=== PATIENT | female | born 1965 | race Caucasian/White ===

== ENCOUNTER → 2017-07-30 08:19 | Outpatient (CLI) | payer OTHER, SELFPAY ==
--- NOTE | 2017-07-30 08:23 | CT_ITS ---
STUDY: CT BRAIN WITHOUT CONTRAST REASON FOR EXAM: Female, 51 years old. Altered mental status. RADIATION DOSAGE (If Supplied By Facility): CTDIvol = ( 44.99 ) mGy, DLP = ( 728.62 ) mGycm TECHNIQUE: Transaxial CT imaging of the brain was performed without administration of intravenous contrast material. Individualized dose optimization techniques were used for this CT. COMPARISON: Comparison is made with prior study dated April 24, 2010. FINDINGS: Normal soft tissue structures. Normal calvarium. Normal size ventricles and extra-axial spaces for the patient's age. Normal white matter tracts of the cerebral hemispheres. Normal basal ganglia and thalami. Normal brainstem. Normal cerebellum. There is no intracranial hemorrhage. There are no findings of an acute ischemic infarction. Normal visualized paranasal sinuses. CT/Brain/Head without Contrast IMPRESSION: Normal unenhanced CT scan of the brain. Electronically Signed: Quinten Hernandez MD at 11:13 EST Tel [phone], Service support ,
== END ==
PROVIDERS: Family Provider Nurse Practitioner; PCP Nurse Practitioner; Visit Provider Nurse Practitioner
DX: R41.82 Altered mental status, unspecified (principal)
CPT/HCPCS: 70450

== ENCOUNTER → 2017-08-07 09:48 | Outpatient (CLI) | payer OTHER, SELFPAY ==
--- NOTE | 2017-08-07 09:50 | RAD_ITS ---
STUDY: X-RAY BONE SURVEY COMPLETE REASON FOR EXAM: Female, 51 years old. Abnormal blood chemistry, bilateral wrist and knee pain, no known injury, memory loss TECHNIQUE: One view of the pelvis was obtained. 2 views of the cervical spine were obtained. 2 Single views of the thoracic spine were obtained. 2 views of the lumbar spine were obtained. 2 each views of the femur. 2 each views of the humerus and forearms. : 2 views of the skull were obtained. COMPARISON: None. FINDINGS: CHEST: The lungs are clear and expanded. There is no demonstrated pleural abnormality. Normal size heart. Normal mediastinum and cornelius. Normal visualized pulmonary arteries. Normal visualized aortic arch and descending thoracic aorta. Normal visualized thoracic spine. Normal visualized ribs, clavicles, and shoulders. There is no demonstrated abnormality of the visualized soft tissue structures of the upper abdomen. PELVIS: There is a non-specific bowel gas pattern. Normal visualized soft tissue structures. Normal bilateral iliac wings, sacroiliac joints and visualized sacrum. Normal visualized bilateral superior and inferior pubic rami. Normal pubic symphysis. Normal ischial tuberosities. Normal visualized right femoral head. Normal right acetabulum. Normal right hip joint. Normal visualized left femoral head. Normal left acetabulum. Normal left hip joint. CERVICAL SPINE: Normal anterior atlantoaxial articulation. Normal odontoid process. Normal cervical lordosis. Normal vertebral bodies and endplates. Normal disc space heights. Normal visualized intervertebral neuroforamina. The soft tissue structures are unremarkable. THORACIC SPINE: Normal kyphosis of the thoracic spine. There is no substantial scoliosis. Normal thoracic vertebrae and endplates. Normal disc space heights. The soft tissue structures are unremarkable. LUMBAR SPINE: Normal lumbar lordosis. There is no substantial scoliosis. There is a normal alignment of the vertebrae. Normal vertebral bodies and endplates. Normal disc space heights. The soft tissue structures are unremarkable. RIGHT FEMUR: Normal visualized femur. Normal visualized soft tissue structure. LEFT FEMUR: Normal visualized femur. Normal visualized soft tissue structure. RIGHT HUMERUS :Normal visualized humerus. There is no demonstrated fracture or osseous destructive process. There is no demonstrated soft tissue abnormality. LEFT HUMERUS:Normal visualized humerus. There is no demonstrated fracture or osseous destructive process. There is no demonstrated soft tissue abnormality. SKULL: There is no demonstrated soft tissue swelling. Normal osseous calvarium. Normal visualized facial bones. Normal visualized paranasal sinuses. RAD/Bone Survey Comp(Axial&Append) IMPRESSION: No osteolytic or blastic lesion, acute or chronic injury detected. Age-appropriate osseous structures. Electronically Signed: Eliaan Chavez MD at 9:34 EST , Service support ,
== END ==
PROVIDERS: Family Provider Nurse Practitioner; PCP Nurse Practitioner; Visit Provider Nurse Practitioner
DX: R79.9 Abnormal finding of blood chemistry, unspecified (principal)
CPT/HCPCS: 77075

== ENCOUNTER → 2017-08-21 11:56 | Outpatient (CLI) | payer OTHER, SELFPAY ==
--- NOTE | 2017-08-21 11:58 | HPBI_ITS ---
MAMMOGRAPHY - BILATERAL SCREENING REASON FOR EXAM: Female, 51 years old. Routine annual screening examination. PERTINENT HISTORY: Remote left excisional breast biopsy. TECHNIQUE: Digital bilateral breast alfreda (3D mammographic acquisition) in the CC and MLO projections. 2-D mediolateral oblique (MLO) and craniocaudad (CC) views of both breasts were obtained. CAD: Full Field Digital Mammography with Computer Added Detection was performed. COMPARISON: Comparison is made with prior examination dated October 19, 2015 and April 27, 2015. FINDINGS: Breast Composition: The breasts are heterogeneously dense, which may obscure small masses. There are no dominant masses or suspicious calcifications. No other significant abnormalities are identified. There has been no significant change since the prior study. HPBI/SCREENING MAMM (CAD), BILAT IMPRESSION: Stable bilateral screening mammogram. Yearly follow-up mammogram recommended. (A) ASSESSMENT CATEGORY: BIRADS Category 1: Negative. A letter regarding these results will be sent to the patient by the facility within 30 days. Approximately 10% of breast cancers are not detected by mammography. A normal mammogram should not delay biopsy of a clinically suspicious abnormality. [id number] Electronically Signed: Quinten Hernandez MD at 13:19 EST Tel [phone], Service support ,
== END ==
PROVIDERS: Family Provider Nurse Practitioner; PCP Nurse Practitioner; Visit Provider Obstetrics & Gynecology
DX: Z12.31 Encounter for screening mammogram for malignant neoplasm of breast (principal)
CPT/HCPCS: 77063; 77067

== ENCOUNTER → 2018-05-11 15:46 | Outpatient (CLI) | payer OTHER, SELFPAY ==
--- NOTE | 2018-05-11 15:49 | CT_ITS ---
STUDY: LOW DOSE CT LUNG CANCER SCREENING REASON FOR EXAM: Female, 52 years old. Smoking 1.5 packs per day for 37 years. Lung cancer screening. RADIATION DOSAGE (If Supplied By Facility): CTDIvol = ( 1.70 ) mGy, DLP = ( 53.61 ) mGycm TECHNIQUE: No contrast was administered. Low dose technique was utilized (average mAS-38 and kVp 120). 1.25 mm axial source images with a slice interval of 1.25-mm were reconstructed in lung windows. Coronal and sagittal 2-D MPR Nodule measured using lung windows on PACS and/or independent workstation with automated measurement of minimum and maximum diameter. Nodule measurement reported as average diameter rounded to the nearest whole number. Growth is defined as an increase ins size of greater than 1.5 mm. COMPARISON: X-ray chest 10/24/2015. FINDINGS: Total lung nodules (excluding granulomas): Right upper lobe anterior segment subpleural pulmonary nodule 2 mm series 1002, image 125. Right lower lobe lateral basilar minimal nodular thickening at the interface of a small accessory fissure and the posterior lateral pleural reflection image 111, 4.6 mm. Left upper lobe posterior apical segment calcified pulmonary nodule consistent with old granules disease, image 84. Left lower lobe lateral basilar subpleural pulmonary nodule 3 mm, image 163. Emphysema: Subtle findings suggesting minimal centrilobular emphysema in the apical lungs. Endobronchial lesion: None. Aorta: Nondilated. No visible arch atherosclerosis. Coronary arteries: No visible atherosclerosis. Heart: Normal heart size without pericardial effusion. Pulmonary artery: Nondilated central pulmonary arteries. Mediastinal nodes: There is no mediastinal or hilar lymphadenopathy. Other chest and abdominal findings: There is circumferential thickening of wall the middle and distal 3rd of the esophagus which may reflect the presence of esophagitis. Clinically correlate for GERD or other symptoms. No other acute thoracic process is evident in limited evaluation. CT/Chest without Contrast IMPRESSION: No acute cardiopulmonary process. Circumferential thickening of wall the middle and distal 3rd of the esophagus. Correlate clinically for any symptoms of esophagitis/GERD. Subtle features of the lung apices suggesting very mild centrilobular emphysema. Tiny pulmonary nodules, the largest measuring 4.6 mm. A solitary calcified pulmonary nodules present consistent with old granulomatous disease. The other tiny nodules may be related to the same process. ACR Lung RADS Category 2 (benign appearance, less than 1% chance of malignancy). Recommendation: Continue annual low dose screening CT. IMPORTANT NOTES FOR USE: ACR Lung-RADS Version 1.0 Assessment Categories Release Date: October 17, 2013 Category: Coded 0-4 bases on nodule(s) with highest degree of suspicion. Negative screen is defined as categories 1 and 2; a positive screen is defined as categories 3 and 4. Category 3 and 4A nodules that are unchanged on interval CT should be coded as category 2, and individuals returned to screening in 12 months. Category 4X: Category 3 or 4 nodules with additional imaging findings that increase the suspicion of lung cancer, such as spiculation, GGN that doubles in size in 1 year, enlarged lymph notes, etc. Category Modifiers: S (significant finding unrelated to lung cancer) and C (prior history of treated lung cancer) may be added to the 0-4 Lung-RADS Electronically Signed: Vicente Lafleur, at 15:05 EST Tel , Service support ,
== END ==
PROVIDERS: Family Provider Nurse Practitioner; PCP Nurse Practitioner; Referring Provider Internal Medicine Pulmonary Disease; Visit Provider Internal Medicine Pulmonary Disease
DX: Z87.891 Personal history of nicotine dependence (principal)
CPT/HCPCS: 71250

== ENCOUNTER → 2019-05-25 08:21 | Outpatient (CLI) | payer OTHER, SELFPAY ==
--- NOTE | 2019-05-25 08:26 | RAD_ITS ---
STUDY: X-RAY - RIGHT WRIST REASON FOR EXAM: Female, 53 years old. Chronic pain, recent injury TECHNIQUE: 3 view(s) of the wrist were obtained. COMPARISON: None. FINDINGS: Normal visualized distal radius and ulna. Normal radiocarpal articulation. Normal distal radioulnar articulation. Normal carpal bones. Normal carpal articulations. Normal carpometacarpal articulation of the thumb. Normal second through fifth carpometacarpal articulations. Normal visualized metacarpal bones. The soft tissue structures are unremarkable. RAD/Wrist min 3 Views IMPRESSION: Normal x-ray examination of the wrist. Electronically Signed: Rickie Peralta MD at 17:14 EST , Service support ,
== END ==
PROVIDERS: Family Provider Nurse Practitioner; PCP Nurse Practitioner; Referring Provider Nurse Practitioner; Visit Provider Nurse Practitioner
DX: M25.531 Pain in right wrist (principal)
CPT/HCPCS: 73110

== ENCOUNTER 2019-06-30 09:00 | Outpatient (RCR) | payer OTHER, SELFPAY ==
--- NOTE | 2019-06-14 13:10 | HP.OTEVAL_ITS ---
Patient's Visit Information SAVANNA FUENTES is a 53 year old F, referred to Occupational Therapy by Kirill Shankar PA-C, with a diagnosis of right wrist pain. Date of Evaluation: 06/14/19 Occupational Therapist: ELHAM Jacobs/Starr, CHT - Subjective Subjective: This 53 year old female was seen for OT eval for dx of right wrist pain- pt states she has had pain for about 8 weeks- pt states she had a fall and pt was place in brace, pt demo pain with wrist flex and lateral pinch- pt states she is limited with al ADls at this time. - ADLs Dressing: Bra, Pants, Socks Fasteners: Zippers, [place] Eating: Use silverware, Drink from glass Bathing: Squeeze shampoo bottle Household: Vacuum, Laundry Miscellaneous: Use cell phone, Handle money (change) - Pain right wrist 2 Pain Intensity Range: 6 - ROM Forearm: right/left WNL Wrist: right 45/60 left 75/60 - Strength Electrical Tech/Project Manager: right 45# left 60# Lateral Pinch: right 12# with pain 4/10 left 14# Tripod Pinch: right 10# with pain 4/10 left 14# - Sensation Sensation Comments: denies - Special Tests WHAT Test: positive - Quick DASH-Disab of Arm,Shoulder& Hand Quick DASH Score: 50.0000 - Goals Goal:: PT will demo an increase in resident services director strength by 20# to increase independent with basic occupations of daily living to return pt to PLOF by D/C. Pt will demo an increase in lateral and tripod pinch by 2# to increase pts independent with opening baggies, containers at PLOF by D/C. Goal:: Pt will demo an increase in wrist ROM equal to unaffected wrist to return pt to PLOF with grooming, dressing and home mtg tasks by D/C. Goal:: Pt will report pain no greater than 1/10 with use of affected hand with BADLs and IADLs by d/c. Goal:: Pt will demo understanding of work/lifting and carry ergonomics to decrease stress on tendons to increase pts independent with ADLs, IADLS and work tasks by d/c. Goal:: Pt will demo ind. Donning/doffing of custom orthosis by end of 1st session. Pt will demonstrate understanding of orthosis use and precautions by end of 1st session and demonstrate knowledge of returning to clinic if orthosis needs adj. to increase comfort by end of 1st session. - Rehabilitation General Assessment: pt demo with right 1st dorsal wrist pain with use of right wirst with ADLs and IADLS. A weak resident services director and pinch strength with pain. Pt would benefit from skilled OT services 1-2x week for 4 weeks. Today pt was ed. on wrist ergo, mechanics to limit pinch with wrist in a flexed position. Therapist also myriam. thumb spica orthosis ed. on use and care. pt demo understanding and agree to POC. Rehabilitation Potential: Good - Anticipated Interventions Anticipated Interventions: Early Active Motion, A/AAROM/PROM, Strengthening, Modalities, Orthoses, Joint Protection/Energy Conservation, Ergonomic Education - Visit Plan Frequency: 2-3x /Week Duration: 4 Weeks TEXT: Thank you for the opportunity to evaluate your patient. For Medicare and Medicare HMO plans, please review the plan of care and approve it. It will need to be FAXED BACK to us at [phone] for Medicare purposes. Please let me know if there are questions or concerns regarding this plan of care. Physician Signature: Date:
--- NOTE | 2019-08-08 12:24 | HP.OT.NRP ---
HP - Discharge Summary - Patient Information SAVANNA FUENTES was seen in my office for initial evaluation on 06/14/19. The following Plan of Care was established for this patient: Plan: Continue to wear soft orthosis-. use wrist ergo at work - Anticipated Interventions Anticipated Interventions: Early Active Motion, A/AAROM/PROM, Strengthening, Modalities, Orthoses, Joint Protection/Energy Conservation, Ergonomic Education This patient was last seen in our office 06/30/19. Pertinent comments regarding their Occupational therapy will appear below: pt was seen in OT 4 visit with minimal improvement. Pt was returning to for re-eval. pt has not scheduled any further apts and is D/C at this time. At this point I will be discontinuing this patient from occupational therapy. I would be happy to see this patient again in the future if found appropriate by the physician. Thank you! Luba Khan, OTR/L, CHT
== END 2019-06-30 19:00 | disposition home or self-care (01) ==
LOC: OT 09:00
PROVIDERS: Family Provider Nurse Practitioner; PCP Nurse Practitioner; Referring Provider Physician Assistant; Visit Provider Physician Assistant
DX: M67.833 Other specified disorders of tendon, right wrist (principal)
CPT/HCPCS: 97035; 97140; 97166; 97530; 97760

== ENCOUNTER → 2019-07-15 06:13 | Outpatient (CLI) | payer OTHER, SELFPAY ==
--- NOTE | 2019-07-15 12:34 | NEURO ---
NCS and/or EMG Patient Report Ordering Doctor: Mireille Fall DATE OF SERVICE: 07/15/19 Devika Page is a 53-year-old female presents for electrodiagnostic testing of the right upper limb. She reports pain in the right wrist since a fall in April 2019. Electrodiagnostic findings: The right median motor nerve demonstrates normal distal latency, amplitude and conduction velocity. Normal right ulnar motor response, including conduction across the elbow. Normal median and ulnar F waves. Sensory responses are within normal limits. On needle EMG, all muscles tested in the right upper limb showed no evidence of denervation with normal motor unit action potentials. Electrodiagnostic impression: This is a normal electrodiagnostic study of the right upper limb. There is no electrodiagnostic evidence for peripheral neuropathy or cervical radiculopathy. If there are any further questions, please do not hesitate to contact me.
== END ==
PROVIDERS: Family Provider Nurse Practitioner; PCP Nurse Practitioner; Referring Provider Nurse Practitioner; Visit Provider Nurse Practitioner
DX: M25.531 Pain in right wrist (principal)
CPT/HCPCS: 95886; 95909

== ENCOUNTER 2019-12-15 13:00 | Outpatient (RCR) | payer OTHER, SELFPAY ==
--- NOTE | 2019-10-11 06:59 | HP.OTEVAL ---
Patient's Visit Information SAVANNA FUENTES is a 54 year old F, referred to Occupational Therapy by ELIF LOPES, with a diagnosis of Scapholunate ligament reconstruction. Date of Evaluation: 10/05/19 Occupational Therapist: Luba Khan, ELHAM/Starr, CHT - Subjective Subjective: This 53 year old female was seen for OT eval with dx of complete tear of ligament of wrist right wrist. Sx was on 08/26/19 diagnostic arthroscopy right wrist with SEC debridement, 2) open scapholunate ligament reconstruction using palmaris longus autograft/3. posterior interosseous nerve neurectomy right wrist-. Dr. pollack calls for working finger ROM and edema control. 8 weeks from sx (September) may Begin gentle wrist ROM without limits. 12 wks from surgery may begin strengthening. pt arrives to session with right hand edema, and soft right wrist brace. pt states thumb and fingers are tender and sore. pt would like to return to PLOF. - ADLs Dressing: Coat, Pants, Socks, Shoes Fasteners: Tie shoes, Buttons, Zippers, Snaps Eating: Bring food to mouth, Use silverware Kitchen: Chop with knife, Peel fruits & vegetables, Open jars, Open bottle caps, Lift gallon of milk, Pour from pitcher, Take dish out of oven, Load/unload solar sales estimator Yard: Mow lawn, [place], Use shovel, Use pruners Miscellaneous: Open medication bottle, Handle money (change), Hold change, Take things out of wallet, Open envelope, Write, Turn pages in book, Use hand tools - Pain right wrist/hand 2 Pain Intensity Range: 1, 6 - ROM Forearm: right NT left WNL Wrist: right NT left WNL CMC: right 5 MP: right 40 IP: right 5 Radial Abduction: right 30 ROM Comments: right IF MCP -10/30, PIP -5/30 DIP 0/10. right MF MCP -10/30, PIP -10/25 DIP 0/10. right RF MCP -10/40, PIP 0/30 DIP 0/10. right LF MCP -10/30, PIP 0/20 DIP 0/10. left hand demo all ROM WNL avergae of MCP 0/80 PIP 0/100 DIP 0/50 - Strength Commercial Lines Insurance Agent: right NT left 50# Lateral Pinch: right NT left 12# Tripod Pinch: rigth NT left 12# - Edema Wrist: right 17.5cm left 16cm PIP: right 7.0 left 6.0 Other: right 20cm left 19cm - Sensation Sensation Comments: WNL at 2.83 all digits- pt reports tingling in right hand - Quick DASH-Disab of Arm,Shoulder& Hand Quick DASH Score: 83.3325 - Hand/Wrist Evaluation Total Score of Pain & Functional Sections: 69 - Goals Goal:100% adherence to protocol: Yes Comment: Dr. Ruggiero SL lig. reconstruction protocol Goal:Daily scar massage when approriate: Yes Comment: right forearm, wirst ROM equal to 70% of unaffected wrist/forearm Goal:Commercial Lines Insurance Agent/Pinch strength at least 75% of unaffected hand: Yes Goal:No pain with affected hand use: Yes Goal:PIP Circumferences equal to unaffected hand: Yes Goal:Full use of affected hand in daily activities including: Yes Goal:Decrease scar hypersensitivity: Yes - Rehabilitation General Assessment: Sx was on 08/26/19 diagnostic arthroscopy right wrist with SEC debridement, 2) open scapholunate ligament reconstruction using palmaris longus autograft/3. posterior interosseous nerve neurectomy right wrist-. Dr. pollack calls for working finger ROM and edema control. 8 weeks from sx (September) may Begin gentle wrist ROM without limits. 12 wks from surgery may begin strengthening. PT demo with edema and limited digit ROM limiting her ability to for a composite fist, and due to healing structure limited with ROM and strengt progression to dr. pollack. pt would benefit from skilled OT services 2-3x week for 8 weeks to assist pt in mtg. edema, provide PROM/joint mobilization to digits, scar mtg and when protocol allow progress pts wrist/forearm and strength to return pt to PLOF. Today therapist completed MEM to decrease edema, ed. pt on home edema mtg, contrast bath/ice, scar mtg and use of brace to prevent wrist motion at this time. Therapist ed. pt wrist ROM can start Aprl 1st her 8 weeks s/p. pt demo understanding and agree to POC. Rehabilitation Potential: Good - Anticipated Interventions Anticipated Interventions: A/AAROM/PROM, Strengthening, Scar Care, Triggerpoint Release, Desensitization, Modalities, Orthoses, Joint Protection/Energy Conservation, Fine Motor Coord/Rafi, Education re Diagnosis - Visit Plan Frequency: 2-3x /Week Duration: 2 Months TEXT: Thank you for the opportunity to evaluate your patient. For Medicare and Medicare HMO plans, please review the plan of care and approve it. It will need to be FAXED BACK to us at [phone] for Medicare purposes. Please let me know if there are questions or concerns regarding this plan of care. Physician Signature: Date:
--- NOTE | 2019-11-17 12:22 | OTREVAL_ITS ---
ELIF LOPES, It has been my pleasure to treat SAVANNA FUENTES over the last 17 visits for Scapholunate ligament reconstruction. Please see the progress note below for an update on the occupational therapy plan of care! Subjective: pt is 12 weeks s/p SL repair. pt reports pain in right shoulder- No pain in her right wrist with ADLS. Objective/Function: pt struggling with edema- using edema glove and cool tap water as needed- pt can form a light composite fist but just recently was able to do so. wrist ext 50*. wrist flex ranges 15-20*. RD 10 UD 15. right forearm supination 60. supination 70* following ex. pt also started to have right shoulder pain. therapy has initiated light strengthening at this time.Pt tolerating well-. pt very active with gardening (therapist has advised pt to not use right UE with heavy lifting task and to use brace when gardening) Plan Frequency: 2-3x /Week Duration: 2 Months Plan: 12 weeks from sx may begin stregnthening Goals - Goals Patient Goals: Regain Mobility, Decrease Pain, Decrease Swelling/Stiffness, Use Hand/Wrist/Arm Normally Again, Decrease Tingling/Numbness, Increase ROM, Be More Independent in ADLS, Decrease Sensitivity Goal:100% adherence to protocol: Yes Goal:Daily scar massage when approriate: Yes Goal:Rehabilitation Inspector/Pinch strength at least 75% of unaffected hand: Yes Goal:No pain with affected hand use: Yes Goal:PIP Circumferences equal to unaffected hand: Yes Goal:Full use of affected hand in daily activities including: Yes Goal:Decrease scar hypersensitivity: Yes Anticipated Interventions Anticipated Interventions: A/AAROM/PROM, Strengthening, Scar Care, Triggerpoint Release, Desensitization, Modalities, Orthoses, Joint Protection/Energy Conservation, Fine Motor Coord/Rafi, Education re Diagnosis Please do not hesitate to contact me at [phone] by phone or if you have questions or concerns regarding this new plan of care! Sincerely, Luba Khan, OTR/L, CHT
--- NOTE | 2019-12-06 09:18 | OTREVAL_ITS ---
ELIF LOPES, It has been my pleasure to treat SAVANNA FUENTES over the last 21 visits for Scapholunate ligament reconstruction. Please see the progress note below for an update on the occupational therapy plan of care! Subjective: Pt states she didn't wear edema glove over night and woke up with hand very swelled. She is going for a nerve conduction done on . Objective/Function: Wrist before: . Sup 77. Wrist after: . R director online marketing 26. L director online marketing 60. pt cont to make gains with ROM and strength for ADLs and IADls- pt is struggles with swelling in her hand and cont. to use edema glove with task. Pt working around her home doing gardening and home mt. as painting and stainging. pt states she does compensate at this time but feels comfortable doing the tasks. Plan Frequency: 2-3x /Week Duration: 2 Weeks Plan: pt 13 weeks 4 days s/p cont with PRE as adeel-. NO over pressure for wrist flex. Take measurements Goals - Goals Patient Goals: Regain Mobility, Decrease Pain, Decrease Swelling/Stiffness, Use Hand/Wrist/Arm Normally Again, Decrease Tingling/Numbness, Increase ROM, Be More Independent in ADLS, Decrease Sensitivity Goal:100% adherence to protocol: Yes Goal:Daily scar massage when approriate: Yes Goal:Transitional Care Manager/Pinch strength at least 75% of unaffected hand: Yes Goal:No pain with affected hand use: Yes Goal:PIP Circumferences equal to unaffected hand: Yes Goal:Full use of affected hand in daily activities including: Yes Goal:Decrease scar hypersensitivity: Yes Anticipated Interventions Anticipated Interventions: A/AAROM/PROM, Strengthening, Scar Care, Triggerpoint Release, Desensitization, Modalities, Orthoses, Joint Protection/Energy Conservation, Fine Motor Coord/Rafi, Education re Diagnosis Please do not hesitate to contact me at [phone] by phone or if you have questions or concerns regarding this new plan of care! Sincerely, Luba Khan, OTR/L, CHT
--- NOTE | 2019-12-15 13:28 | HP.OTDCSUM_ITS ---
It has been my pleasure to treat SAVANNA FUENTES under orders from ELIF LOPES, for the diagnosis of Scapholunate ligament reconstruction for a total of 22 visit(s). Please see the following information for a summary of their discharge status. % Improvement: 80 Objective/Function: wrist 45/30. edema right MF PIP 6.2 left MF PIP 6.0. UD 15 RD 15. pt demo the ability to form tight composite fist. right enrollment eligibility representative strength 27#. right lateral pinch 12#. right tripod pinch 10#. pt demo with monofilament testing to digits on pads 2.83. tips under finger nail- 3.21 Patient Goals: Regain Mobility, Decrease Pain, Decrease Swelling/Stiffness, Use Hand/Wrist/Arm Normally Again, Decrease Tingling/Numbness, Increase ROM, Be More Independent in ADLS, Decrease Sensitivity Goal:100% adherence to protocol: Yes Goal:Daily scar massage when approriate: Yes Goal:Lozenge Dough Mixer/Pinch strength at least 75% of unaffected hand: Yes Goal:No pain with affected hand use: Yes Goal:PIP Circumferences equal to unaffected hand: Yes Goal:Full use of affected hand in daily activities including: Yes Goal:Decrease scar hypersensitivity: Yes Plan: pt 13 weeks 4 days s/p cont with PRE as adeel-. NO over pressure for wrist flex. Take measurements Discharge Comments: pt continues to make gains with ROM and strength and pt will cont with HEP at this time. Pt demo understanding of her HEP and use of compression glove as needed for edema control. pt continues to have right shoulder pain with shoulder ext. therapist ed. pt on AAROM and isometric ex to assist in decrease in pain and increase in strength- pt demo understanding and agree to cont. with HEP If there are questions or concerns regarding this patient's occupational therapy, please fell free to call me at [phone]. Thank you for the referral of this patient. Sincerely, Luba Khan, OTR/L, CHT
== END 2019-12-15 19:00 | disposition home or self-care (01) ==
LOC: OT 13:00
PROVIDERS: PCP Nurse Practitioner
DX: S63.501D Unspecified sprain of right wrist, subsequent encounter (principal)
CPT/HCPCS: 97035; 97110; 97140; 97166; 97530; 97760

== ENCOUNTER 2021-01-30 15:53 | Emergency (ER) | payer OTHER, SELFPAY ==
[2021-01-30 15:33] VITALS: BMI 29.0
[2021-01-30 15:53] VITALS: BP 151/87; PULSE 67; RESP 16; TEMP 36.6; O2SAT 97; BMI 29.0
--- NOTE | 2021-01-30 16:18 | ED.VIS.GI ---
HPI HPI - GI History of Present Illness Chief Complaint: Abd Pain Narrative Narrative: 6-year-old female presenting with epigastric pain. This has been ongoing for a couple of days. Patient has a history of GERD and is on pantoprazole as needed. Patient states that she does take Tylenol and ibuprofen sporadically for pain. She does mention that she recently had dental work and was told to take 600 mg of ibuprofen as well as alternating with Tylenol. Patient denies chest pain, palpitations, shortness of breath. She has some mild nausea with the epigastric pain but denies vomiting. She denies constipation or diarrhea. Patient states has not had a fever, chills, body aches, change in taste or smell. Patient denies cardiac history. Patient states that she was seen at the urgent care prior to arrival and was told that she needed to get her gallbladder checked. Patient states he is not a drinker and has no history of pancreatitis. [facility] Medical History Abdominal pain Hemorrhoids Home Medications acetaminophen 325 mg capsule 325 mg PO ONCE PRN 01/30/21 [History Last Taken Unknown] pantoprazole 40 mg PO DAILY PRN 01/30/21 [History Last Taken Unknown] Allergy/AdvReac Type Severity Reaction Status Date / Time codeine AdvReac Nausea Verified 01/30/21 15:55 Family History Other Heart disease Kidney disease Social History Smoking Status: Current every day smoker tobacco type: cigarettes alcohol intake: never ROS [facility] ED Constitutional Constitutional ED: Denies chills, fever(s) or sweats ENT ENT ED: Denies rhinorrhea or sore throat Cardiovascular Cardiovascular: Denies chest pain, palpitations or racing heartbeat Respiratory/Chest Respiratory/Chest: Denies cough or dyspnea Gastrointestinal Gastrointestinal: Reports nausea and other Details: Epigastric Pain ; Denies constipation, diarrhea, melena or vomiting Genitourinary Genitourinary ED: Denies dysuria, hematuria or urinary frequency Musculoskeletal Musculoskeletal: Denies arthralgias or myalgias Neurologic Neurologic: Denies headache(s) or paresthesias Psychiatric Psychiatric: Denies anxiety or depression EXAM Physical Exam Const Vital Signs: 01/30/21 15:53 Temperature 97.8 F Temperature Source Temporal Pulse Rate 67 Respiratory Rate 16 Blood Pressure 151/87 H Blood Pressure Mean 108 Pulse Ox 97 Oxygen Delivery Method Room Air Positive well nourished General Appearance ED: NAD; Negative for pallor HEENT Denies moist mucous membranes normocephalic and atraumatic Eyes Negative for PERRL or EOMs intact bilaterally Resp normal respiratory effort and clear to auscultation bilaterally Cardio regular rate and regular rhythm GI Auscultation: normoactive bowel sounds Palpation: soft and tender epigastric Extremity full ROM General Extremety ED: Yes edema General Extremity: edema Neuro CN's II-XII intact bilaterally and moves all extremities Sensorium / Orientation: alert, oriented to person, oriented to place and oriented to time Motor Exam: strength 5/5 throughout Psych mental status grossly normal and thought process normal Skin General Skin Exam: Negative for jaundice or pallor Lesions: no lesions Rashes: no rashes MDM MDM MDM Narrative Medical decision making narrative: Patient presenting with epigastric pain. I did discuss with her that given her pain symptoms we should probably do blood work and imaging. She states that she does not feel like she needs lab work and imaging. I did discuss with her at length the possibility of cardiac etiology and abdominal etiology. Patient states that she does not want any of this work-up done. I did give her a GI cocktail and she has improvement of her symptoms although her symptoms have not resolved. I then again asked her if she wanted to do blood work and imaging to rule out other sources of pain besides gastritis or stomach ulcer and she stated that she did not. She does have pantoprazole at home and has been taking this as needed and she is counseled likely she would need to do this daily. She is also counseled on foods that would cause worsening symptoms if she did have gastritis. She is counseled on discontinuing use of ibuprofen as well. Patient is counseled at length that if she has new or worsening symptoms that she should return for repeat evaluation given that we have not been able to do blood work, imaging, EKG today at the patient's request. Impression: 1. Epigastric pain Discharge Plan Triage Chief Complaint: Abd Pain ED Provider: Kelvin Castellanos Dx/Rx/DC Orders Instructions: ED PEPTIC ULCER vs GASTRITIS Prescriptions: No Action acetaminophen [Tylenol] 325 mg capsule 325 mg PO ONCE PRN (Reason: Pain) RF: 0 pantoprazole 40 MG tablet,delayed release (DR/EC) 40 mg PO DAILY PRN (Reason: gerd) RF: 0 Primary Care Provider: Mireille Fall NP Referrals: Mireille Fall NP, BODY SHOP TECHNICIAN-C [Primary Care Provider] - Disposition Disposition: Home, Self Care
[2021-01-30] MEDS: Mag Hydrox/Al Hydrox/Simeth 30 ML UDC PO (16:34)
[2021-01-30 16:59] VITALS: PULSE 66; RESP 18; O2SAT 99
== END 2021-01-30 17:04 | disposition home or self-care (01) ==
PROVIDERS: Emergency Provider Student in an Organized Health Care Education/Training Program; PCP Nurse Practitioner
DX: R10.13 Epigastric pain (principal); R11.0 Nausea; K21.9 Gastro-esophageal reflux disease without esophagitis; F17.210 Nicotine dependence, cigarettes, uncomplicated
CPT/HCPCS: 99282

== ENCOUNTER → 2021-01-31 15:06 | Outpatient (CLI) | payer OTHER, SELFPAY ==
[2021-01-30 15:53] VITALS: BMI 29.0
--- NOTE | 2021-01-31 15:25 | BI_ITS ---
MAMMOGRAPHY - BILATERAL SCREENING REASON FOR EXAM: Female, 55 years old. Routine annual screening examination. PERTINENT HISTORY: Non-contributory. Remote left excisional breast biopsy. TECHNIQUE: Digital bilateral breast aide (3D mammographic acquisition) in the CC and MLO projections. 2-D mediolateral oblique (MLO) and craniocaudad (CC) views of both breasts were obtained. CAD: Full Field Digital Mammography with Computer Added Detection was performed. COMPARISON: Comparison is made with prior study 08/21/2017 and 10/19/2015. FINDINGS: Breast Composition: The breasts are heterogeneously dense, which may obscure small masses. There are no dominant masses or suspicious calcifications. No other significant abnormalities are identified. There has been no significant change since the prior study. BI/SCRN MAMM (CAD)W/AIDE BILAT IMPRESSION: Stable bilateral screening mammogram. Yearly follow-up mammogram recommended. (A) ASSESSMENT CATEGORY: BIRADS Category 1: Negative. A letter regarding these results will be sent to the patient by the facility within 30 days. Approximately 10% of breast cancers are not detected by mammography. A normal mammogram should not delay biopsy of a clinically suspicious abnormality. [id number] Electronically Signed: Quinten Hernandez MD at 8:52 EDT , Service support ,
== END ==
PROVIDERS: PCP Nurse Practitioner; Referring Provider Obstetrics & Gynecology; Visit Provider Obstetrics & Gynecology
DX: Z12.31 Encounter for screening mammogram for malignant neoplasm of breast (principal)
CPT/HCPCS: 77063; 77067

== ENCOUNTER → 2021-03-14 | Outpatient (CLI) | payer OTHER, SELFPAY ==
[2021-03-14 18:13] LABS: Probe Check PASS; Specimen Processing Control PASS
== END | disposition home or self-care (01) ==
LOC: LABSPEC 12:52
PROVIDERS: PCP Nurse Practitioner; Referring Provider Physician Assistant; Visit Provider Physician Assistant
DX: J02.9 Acute pharyngitis, unspecified (principal)
CPT/HCPCS: 87635; U0005; U0003

== ENCOUNTER → 2021-04-05 14:43 | Outpatient (CLI) | payer OTHER, SELFPAY ==
--- NOTE | 2021-04-05 14:46 | CT_ITS ---
STUDY: LOW DOSE CT LUNG CANCER SCREENING REASON FOR EXAM: Female, 55 years old. SMOKER RADIATION DOSAGE (If Supplied By Facility): CTDIvol = ( 1.59 ) mGy, DLP = ( 48.24 ) mGycm TECHNIQUE: No contrast was administered. Low dose technique was utilized (average mAS-38 and kVp 120). 1.25 mm axial source images with a slice interval of 1.25-mm were reconstructed in lung windows. 2.5 mm axial source images with a slice interval of 2.5-mm were reconstructed in lung windows. 5.0 mm axial source images with a slice interval of 5.0-mm were reconstructed in soft tissue windows. Nodule measured using lung windows on PACS and/or independent workstation with automated measurement of minimum and maximum diameter. Nodule measurement reported as average diameter rounded to the nearest whole number. Growth is defined as an increase ins size of greater than 1.5 mm. COMPARISON: 11 May 2018 Findings: There are no focal high risk pulmonary findings. Lungs are clear with minimal benign micronodules, which are brain without and scars and are low risk.. Airways are patent. Pleural surfaces are intact. Appearance is stable since prior. CT/Low Dose CT Lung Screening IMPRESSION: Lung RADS category 2. IMPORTANT NOTES FOR USE: ACR Lung-RADS Version 1.1 Assessment Categories Release Date: 2018 Category: Coded 0-4 bases on nodule(s) with highest degree of suspicion. Negative screen is defined as categories 1 and 2; a positive screen is defined as categories 3 and 4. Category 3 and 4A nodules that are unchanged on interval CT should be coded as category 2, and individuals returned to screening in 12 months. Category 4X: Category 3 or 4 nodules with additional imaging findings that increase the suspicion of lung cancer, such as spiculation, GGN that doubles in size in 1 year, enlarged lymph notes, etc. Category Modifiers: S (significant finding unrelated to lung cancer) Electronically Signed: David Jason MD at 18:40 EDT Tel , Service support ,
== END ==
PROVIDERS: PCP Nurse Practitioner; Referring Provider Internal Medicine; Visit Provider Internal Medicine
DX: F17.200 Nicotine dependence, unspecified, uncomplicated (principal); Z12.2 Encounter for screening for malignant neoplasm of respiratory organs
CPT/HCPCS: 71271

== ENCOUNTER → 2021-05-03 09:53 | Outpatient (CLI) | payer OTHER, SELFPAY ==
--- NOTE | 2021-05-03 09:56 | CDU_ITS ---
Reason For Study: DIZZINESS Rt. Velocities/BP Lt. Velocities/BP Prox CCA 72.0/18.2 cm/sec. Prox CCA 109.0/33.4 cm/sec. Mid CCA 85.2/30.4 cm/sec. Mid CCA 88.2/26.9 cm/sec. Dist CCA 73.4/31.7 cm/sec. Dist CCA 84.2/29.5 cm/sec. Prox ICA 82.6/36.9 cm/sec. Prox ICA 71.1/28.1 cm/sec. Mid ICA 76.0/38.2 cm/sec. Mid ICA 124.0/49.1 cm/sec. Dist ICA 78.6/38.2 cm/sec. Dist ICA 138.6/43.7 cm/sec. Rt. ICA/CCA = 1.0. Lt. ICA/CCA = 1.6. Prox ECA 99.5/22.6 cm/sec. Prox ECA 152.7/21.1 cm/sec. Rt. Vert. 39.9/15.1 cm/sec. Lt. Vert. 41.6/17.1 cm/sec. Right Extracranial There is homogeneous, smooth atherosclerotic plaque noted in the right common carotid artery. There is heterogeneous, smooth atherosclerotic plaque noted in the right internal carotid artery. There is no significant atherosclerotic plaque noted in the right external carotid artery. Antegrade flow is noted in the right vertebral artery. There is homogeneous, smooth atherosclerotic plaque noted in the right bulb. Left Extracranial There is homogeneous, smooth atherosclerotic plaque noted in the left common carotid artery. There is homogeneous, smooth atherosclerotic plaque noted in the left internal carotid artery. The tortuous nature of the left internal carotid artery may result in flow velocities overestimating the degree of stenosis. There is no significant atherosclerotic plaque noted in the left external carotid artery. Antegrade flow is noted in the left vertebral artery. There is heterogeneous, smooth atherosclerotic plaque noted in the left bulb. Procedure Carotid Duplex [id number]. Exam performed in department. VL/Carotid Duplex Ultrasound Interpretation Summary Mild (<50%) stenosis right extracranial internal carotid. Mild (<50%) stenosis left extracranial internal carotid. Flow within the vertebral arteries is antegrade bilaterally. Atherosclerotic plaque is noted in the carotid bulbs bilaterally, which does not appear to be h emodynamically significant. Ordering Physician: Melodie Newton Referring Physician: CHRISTY UMNOZ Performed By: Madyson Pemberton, CURLY, RVT
== END ==
PROVIDERS: PCP Nurse Practitioner; Referring Provider Internal Medicine; Visit Provider Internal Medicine
DX: R42 Dizziness and giddiness (principal)
CPT/HCPCS: 93880

== ENCOUNTER 2021-05-21 13:00 | Outpatient (RCR) | payer OTHER, SELFPAY ==
--- NOTE | 2021-05-13 13:43 | HP.PTEVAL_ITS ---
Patient's Visit Information SAVANNA FUENTES is a 55 year old F referred to Physical Therapy by VINAY Ruano with a diagnosis of vertigo. Date of Evaluation: 05/13/21 Physical Therapist: Juice Aguilar, ANKITT, OCS, CSCS - Visit Plan Frequency: 1-2x /Week Duration: 4-6 Weeks Plan: Treated with L francesca per prescription today but also taught VOR 60 seconds horizontal 5x/day for HEP. Will treat 1-2x/week as needed helpful for vestibular but may move to cervical manaul therapy, ROM, strength and mechanical traction if progress not noted quickly. - Subjective Look down and to left gets dizzy(things move and feels nauseaous, spinny) it la sts unjtil she puts her head back up. It has been happening for months when she looks down like to put shoe on or shave legs. Put on HTN meds recently but not for dizzyness. Had US of neck arteries and has 50% on the left ernestine eand ordered cholesterol test. Has had BPPV before lying in bed and this is not the same. Diagnosed with pinched nerve or vertigo. No diagnostics of neck. Feels spacey even outside of the perturbating position. Spacey feeling is present most of time and has been there for months. Has sleep apnea and this started when thoguht she may need to change machine and visited sleep doctor. Works and doesn't help her back but feels foggy. Sleep is OK. Does everything at home, just doesn't feel great. No neck pain or arm symptoms. - Objective Walks normal into PT without gait deviations or unsteadiness. Trasnfers normal. Steps reciprocal with one rail I. FW head and elevated protracgted scapula. C/S aORM 45 B rotation with stiffness, 35 ext stiff, no painful. + c/s compression L. UE aROM WFL and sensation WNL to gross light touch. Strength 4/5 UE. Tender to palpation L UT and into scalenes minimally. Positional: - B hallpike bill. - roll test. Oculomotor: no nystagmus with gaze or head shake. - skew eye deviation. - ocular tilt. - head thrust. VOr causes dizzyn symptoms short duration after 30 seconds and eyes tend to come off target quickly to R head rotation. Pursuit and saccades are normal. Should be noted in supine with L rot and c/s flexion as in roll test, pt dizzyness is reproduced but no nystagmus and lasts until we get out of position. - Balance/Special Test Scores Functional Gait Assessment Score: 29 % Disability: 3.3400 Dizziness Score: 16 - Goals Goal 1:: L rotation and flexion not causing symptoms. Goal Time Frame: 4-6 Weeks Goal 2:: Pt feel 90% better with overall dizzyness Goal Time Frame: 4-6 Weeks Goal 3:: DHI 5 or less. Goal Time Frame: 4-6 Weeks - Rehabilitation Potential Physical Therapy Diagnosis: Vertigo vestibular possible/cervicogenic possible. Rehabilitation Potential: Questionable - Anticipated Interventions Patient/Client Instruction: Educate patient on: Condition, Plan of Care For the Purpose of:: To increase tolerance to activity/condition/position Therapeutic Exercise to Include: Strength training, Postural training, Flexibilty training, Passive ROM, Active ROM Comment: positional and vestibular ex as helpful For the Purpose of:: To increase tolerance to activity/condition/position Manual Therapy Techniques to Include: Mobilization, Soft tissue mobilization For the Purpose of:: To increase ROM, To increase tolerance to activity/condition/position Thank you for the opportunity to evaluate your patient. For Medicare and Medicare HMO plans, please review the plan of care and approve it. It will need to be FAXED BACK to us at [phone] for Medicare purposes. For Medicare only, by signing this I certify the plan of care. Please let me know if there are questions or concerns regarding this plan of care. Physician Signature: Date:
--- NOTE | 2021-05-21 13:37 | HP.PTREVAL_ITS ---
Mireille Fall, PROTECTIVE SIGNAL INSTALLER HELPER-C, It has been my pleasure to treat SAVANNA FUENTES over the last 2 visits for vertigo. Please see the progress note below for an update on the physical therapy plan of care! Subjective: Positional treatment did not help. Been doing VOR 60 seconds 2- 3x/day. It does not give her symtpoms hardly at all. Overall no major differences form early last week. Still dizzy lokking down and to the left. Objective/Function: - B hallpike bill and - roll test today. Feels clicking with head turns in neck. No dizzyness with VOR today. dizzy with head turns but not similar spinning to head down and to the left which causes sick nauseous feeling after about 5 seconds. Recovers quickly. other oculomotor not different than at eval. Neck ROM 55 B rotation and 50 ext, slight discomfort L neck improved with stretching of lev scap and L UT. - VAT. Overall not significantly different than last week and not obviously positional or vestibular. Pt to meet with doctor via Zoom today to address next step. Plan Plan: F/u to check habituation ex next week and d/.c if no better OR treat with cervical STM , DTR, ROM, stretching and strengthening of neck and posture 2x/week for 3-4 weeks. Pt to meet with doctor today to discuss next step as this does not seem to be a vestibular issue and is certainly not positional vertigo, further testing may be appropriate. Balance/Gait/Functional tests - Balance/Special Test Scores Functional Gait Assessment Score: 29 % Disability: 3.3400 Dizziness Score: 16 Goals Goal 1:: L rotation and flexion not causing symptoms. Goal Time Frame: 4-6 Weeks Goal 2:: Pt feel 90% better with overall dizzyness Goal Time Frame: 4-6 Weeks Goal 3:: DHI 5 or less. Goal Time Frame: 4-6 Weeks Anticipated Interventions Patient/Client Instruction: Educate patient on: Condition, Plan of Care For the Purpose of:: To increase tolerance to activity/condition/position Therapeutic Exercise to Include: Strength training, Postural training, Flexibilty training, Passive ROM, Active ROM Comment: positional and vestibular ex as helpful For the Purpose of:: To increase tolerance to activity/condition/position Manual Therapy Techniques to Include: Mobilization, Soft tissue mobilization For the Purpose of:: To increase ROM, To increase tolerance to activity/condition/position Please do not hesitate to contact me at [phone] by phone or if you have questions or concerns regarding this new plan of care! Sincerely, Juice Aguilar, DPT, OCS, CSCS
--- NOTE | 2021-07-05 07:59 | HP.PT.NRP ---
SAVANNA FUENTES was seen in my office for initial evaluation on 05/13/21. The following Plan of Care was established for this patient: Initial Frequency: 1-2x /Week Initial Duration: 4-6 Weeks Patient/Client Instruction: Educate patient on: Condition, Plan of Care For the Purpose of:: To increase tolerance to activity/condition/position Therapeutic Exercise to Include: Strength training, Postural training, Flexibilty training, Passive ROM, Active ROM For the Purpose of:: To increase tolerance to activity/condition/position Manual Therapy Techniques to Include: Mobilization, Soft tissue mobilization For the Purpose of:: To increase ROM, To increase tolerance to activity/condition/position This patient was last seen in our office 05/21/21. Pertinent comments regarding their Physical therapy will appear below: Pt seen two visits of POC and cancelled the last two visits without rescheduling. at this point, it has been over 6 weeks and I will discontinue due to nonattendance. At this point I will be discontinuing this patient from physical therapy. I would be happy to see this patient again in the future if found appropriate by the physician. Thank you! Juice Aguilar, DPT, OCS, CSCS Balance/Gait/Functional tests - Balance/Special Test Scores Functional Gait Assessment Score: 29 % Disability: 3.3400 Dizziness Score: 16
== END 2021-05-21 19:00 | disposition home or self-care (01) ==
LOC: PT 13:00
PROVIDERS: PCP Nurse Practitioner; Referring Provider Nurse Practitioner; Visit Provider Nurse Practitioner
DX: R42 Dizziness and giddiness (principal)
CPT/HCPCS: 97140; 97162

== ENCOUNTER → 2021-05-23 20:18 | Outpatient (CLI) | payer OTHER, SELFPAY | PROVIDERS: PCP Nurse Practitioner; Visit Provider Psychiatry & Neurology Sleep Medicine | DX: G47.33 Obstructive sleep apnea (adult) (pediatric) (principal); Z99.89 Dependence on other enabling machines and devices | CPT/HCPCS: 95810 ==

== ENCOUNTER → 2022-02-06 | Outpatient (CLI) | payer OTHER, SELFPAY ==
--- NOTE | 2022-02-06 14:49 | BI_ITS ---
MAMMOGRAPHY - BILATERAL SCREENING REASON FOR EXAM: Female, 56 years old. Routine annual screening examination. PERTINENT HISTORY: Non-contributory. Remote left excisional breast biopsy. TECHNIQUE: Digital bilateral breast aide (3D mammographic acquisition) in the CC and MLO projections. 2-D mediolateral oblique (MLO) and craniocaudad (CC) views of both breasts were obtained. CAD: Full Field Digital Mammography with Computer Added Detection was performed. COMPARISON: Comparison is made with prior study dated 01/31/2021 and 08/21/2017. FINDINGS: Breast Composition: The breasts are heterogeneously dense, which may obscure small masses. There are no dominant masses or suspicious calcifications. No other significant abnormalities are identified. There has been no significant change since the prior study. BI/SCRN MAMM (CAD)W/AIDE BILAT IMPRESSION: Stable bilateral screening mammogram. Yearly follow-up mammogram recommended. (A) ASSESSMENT CATEGORY: BIRADS Category 1: Negative. A letter regarding these results will be sent to the patient by the facility within 30 days. Approximately 10% of breast cancers are not detected by mammography. A normal mammogram should not delay biopsy of a clinically suspicious abnormality. [id number] Electronically Signed: Quinten Hernandez MD at 8:10 EDT ,
--- NOTE | 2022-02-06 14:50 | BD_ITS ---
STUDY: DUAL ENERGY X-RAY ABSORPTIOMETRY / DXA REASON FOR EXAM: Female, 56 years old. [id number]. Patient is postmenopausal. TECHNIQUE: Bone Mineral Density (BMD) measurements of lumbar spine and bilateral hips were obtained. COMPARISON: Comparison is made with prior study dated 2017. FINDINGS: Lumbar Spine (L1-L4): g/cm2 (1.037) / T-score (-0.1) / Z-score (1.0) Findings are suggestive of normal bone density with a low fracture risk. Left Femur Total: g/cm2 (1.073) / T-score (1.1) / Z-score (1.8) Left Femoral Neck: g/cm2 (0.921) / T-score (0.6) / Z-score (1.7) Right Femur Total: g/cm2 (1.098) / T-score (1.3) / Z-score (2.0) Right Femoral Neck: g/cm2 (0.924) / T-score (0.7) / Z-score (1.7) The T-Scores on the most recent prior examination were: Lumbar Spine (L1-L4): There has been worsening of bone density since the previous examination. BD/Dexa Bone Density Study IMPRESSION: The patient is considered normal as outlined below according to World Memo Organization (WHO) criteria with a low fracture risk. Reference Information: The T-score is the number of standard deviations above or below the standard which is normal for young adults at their peak bone mineral density. The World Health Organization (WHO) interprets the T-scores as follows: Above -1 Normal bone density Between -1 and -2.5 Osteopenia Equal to / or below -2.5 Osteoporosis As a practical clinical guideline, osteopenia may be graded as follows: Mild -1 through -1.5 Moderate -1.6 through -2.0 Severe -2.1 through -2.4 The Z-score is the number of standard deviations above or below age-matched controls. A Z-score of less than -1.5 would be considered abnormal. References: 1. NIH Osteoporosis and Related Bone Diseases www osteo.org 2. International Society for Clinical Densitometry www iscd.org 3. National Osteoporosis Foundation www nof.org Electronically Signed: Quinten Hernandez MD at 15:44 EDT ,
== END | disposition home or self-care (01) ==
PROVIDERS: Visit Provider Nurse Practitioner
DX: Z12.31 Encounter for screening mammogram for malignant neoplasm of breast (principal); M85.80 Other specified disorders of bone density and structure, unspecified site; Z78.0 Asymptomatic menopausal state
CPT/HCPCS: 77063; 77067; 77080

== ENCOUNTER → 2022-05-02 | Outpatient (CLI) | payer OTHER, SELFPAY ==
--- NOTE | 2022-05-02 09:53 | US_ITS ---
STUDY: ABDOMINAL ULTRASOUND - RIGHT UPPER QUADRANT REASON FOR VISIT: Female, 56 years old RUQ PAIN -- PAIN RADIATING FROM THE THROAT TO THE EPIGASTRIC REGION X 1 WEEK TECHNIQUE: Ultrasound evaluation of the right upper quadrant was performed with real-time and static martin-scale imaging. TECHNICAL QUALITY: Adequate. COMPARISON: None. FINDINGS: Liver: The liver measures 16.6 cm. There is normal echogenicity of the liver. The bile ducts are within normal limits. There is hepatic color flow. The direction of portal flow is hepatopetal. There is no demonstrated mass lesion. Gallbladder: Normal distended gallbladder. The gallbladder wall measures 2 mm. There is a negative sonographic Burnett''s sign. There is no pericholecystic fluid. There are no gallstones. Common Bile Duct (C.B.D.): The common bile duct measures 5 mm. Pancreas: Normal size of the head, body and tail of the pancreas. There is normal echogenicity of the pancreas. There is no demonstrated pancreatic mass or cyst. Right Kidney: Normal size of the right kidney. The right kidney measures 10.3 cm. Normal renal cortex. The right cortex measures 1.2 cm. There is no demonstrated renal mass or cyst. There is no right hydronephrosis. US/Abdomen Limited IMPRESSION: Normal right upper quadrant ultrasound examination. Electronically Signed: Vicente Null MD at 11:02 EST ,
== END | disposition home or self-care (01) ==
PROVIDERS: PCP Internal Medicine; Visit Provider Internal Medicine
DX: R10.13 Epigastric pain (principal)
CPT/HCPCS: 76705

== ENCOUNTER → 2022-05-02 | Outpatient (CLI) | payer OTHER, SELFPAY ==
[2022-05-02 10:05] LABS: Erythrocyte Sedimentation Rate 9 mm/hr (0-30)
[2022-05-02 10:08] LABS: Absolute Lymphocyte Count 2.13 X10^3/uL (0.83-4.51); Absolute Neutrophil Count 4.5 X10^3/uL (2.0-7.7); Basophil# 0.03 X10^3/uL; Basophil% 0.4 % (0-1); Eosinophil# 0.12 X10^3/uL; Eosinophils% 1.7 % (0-5); Hematocrit 44.6 % (37-47); Hemoglobin 14.9 g/dL (12.0-15.0); Lymphocyte # 2.13 X10^3/ul (0.83-4.51); Lymphocyte % 29.5 % (19-41); Mean Corp Hgb Conc 33.4 g/dL (32-36); Mean Corpuscular Hgb 29.2 pg (27.0-32.0); Mean Corpuscular Volume 87.3 fL (81-99); Mean Platelet Vol. 10.6 fl (6.2-12.0); Monocyte# 0.44 X10^3/uL; Monocyte% 6.1 % (0-10); NRBC Flagged by Analyzer 0.3 % (0-5); Neutrophil # 4.48 X10^3/uL (2.7-7.7); Neutrophil % 61.9 % (47-70); Platelet Count 237 K/mm3 (150-450); RBC Distribution Width CV 12.7 % (11.6-14.6); RBC Distribution Width SD 40.7 fl (35.1-43.9); Red Blood Count 5.11 M/mm3 (4.2-5.4); White Blood Count 7.2 K/mm3 (4.4-11.0)
[2022-05-02 10:14] LABS: ALB/GLOB Ratio 1.1 RATIO (0.9-2.4); AST(SGOT) 18 U/L (15-37); Alanine Aminotransfer ALT/SGPT 21 U/L (13-56); Albumin, Serum 3.9 g/dL (3.2-5.0); Alkaline Phosphatase 78 U/L (45-117); Anion Gap 4 (5-15); BUN 13 mg/dL (7-18); BUN/Creat Ratio 18.7 RATIO (10-20); CRP 8.15 mg/L (0.0-3.0); Calcium,Total 9.3 mg/dL (8.5-10.1); Chloride 104 mmol/L (98-107); EST Glomerular Filtration Rate 93 mL/min (>60); Est Glom Filt Rate - Afr Amer 112 mL/min (>60); Globulin 3.4 g/dL (2.2-4.2); Glucose 96 mg/dL (74-106); Potassium 4.1 mmol/L (3.5-5.1); Protein, Total 7.3 g/dL (6.4-8.2); Sodium Level 139 mmol/L (136-145)
== END | disposition home or self-care (01) ==
LOC: LABSPEC 09:55
PROVIDERS: PCP Internal Medicine; Visit Provider Internal Medicine
DX: R10.13 Epigastric pain (principal)
CPT/HCPCS: 80053; 85025; 85652; 86140

== ENCOUNTER → 2023-02-11 | Outpatient (CLI) | payer OTHER, SELFPAY ==
--- NOTE | 2023-02-11 13:13 | BI_ITS ---
MAMMOGRAPHY - BILATERAL SCREENING REASON FOR EXAM: Female, 57 years old. Routine annual screening examination. PERTINENT HISTORY: Remote left excisional breast biopsy. No family history of breast cancer. TECHNIQUE: Digital bilateral breast aide (3D mammographic acquisition) in the CC and MLO projections. 2-D mediolateral oblique (MLO) and craniocaudad (CC) views of both breasts were obtained. CAD: Full Field Digital Mammography with Computer Added Detection was performed. COMPARISON: Screening mammogram from 02/06/2022, 01/31/2021. FINDINGS: Breast Composition: The breasts are heterogeneously dense, which may obscure small masses. There is a focal asymmetry in the left upper outer breast, middle depth, approximately 5.5 cm posterior to the nipple and located adjacent to a new large benign-appearing breast calcification. Although this may relate to overlapping fibroglandular tissue, this appears slightly more conspicuous than on prior comparison studies. Further assessment with spot compression views and ultrasound if needed is recommended. No other significant abnormalities are identified. No other significant changes from prior study. BI/SCRN MAMM (CAD)W/AIDE BILAT IMPRESSION: Further imaging evaluation recommended, as described above. (E) Recall Side: Left Breast ASSESSMENT CATEGORY: BIRADS Category 0: Incomplete. Need additional imaging evaluation. A letter regarding these results will be sent to the patient by the facility within 30 days. Approximately 10% of breast cancers are not detected by mammography. A normal mammogram should not delay biopsy of a clinically suspicious abnormality. Electronically Signed: Deonte Madera DO at 15:11 EDT ,
== END | disposition home or self-care (01) ==
LOC: OPBI 13:10
PROVIDERS: PCP Internal Medicine; Referring Provider Nurse Practitioner Family; Visit Provider Nurse Practitioner Family
DX: Z12.31 Encounter for screening mammogram for malignant neoplasm of breast (principal)
CPT/HCPCS: 77063; 77067

== ENCOUNTER → 2023-02-18 | Outpatient (CLI) | payer OTHER, SELFPAY ==
--- NOTE | 2023-02-18 14:28 | US_ITS ---
STUDY: ULTRASOUND BREAST - LEFT REASON FOR EXAM: Female, 57 years old. Abnormal screening mammogram. TECHNIQUE: Axial and longitudinal images of the LEFT breast were performed with a high resolution ultrasound transducer. # OF IMAGES: 36 COMPARISON: Comparison is made with prior mammogram dated February 18, 2023 and prior ultrasound of the left breast dated October 19, 2015. FINDINGS: LEFT Breast: There is a 1.2 cm x 1.6 cm x 0.8 cm cyst at 2:00 position of the breast at 4 cm from the nipple. US/Breast Limited Unilateral IMPRESSION: 1.2 cm x 1.6 x 0.8 cm cyst at the 2:00 position of the breast of 4 cm from the nipple. ASSESSMENT CATEGORY: BIRADS Category 2: Benign. A letter regarding these results will be sent to the patient by the facility within 30 days. Electronically Signed: Quinten Hernandez MD at 10:57 EDT ,
--- NOTE | 2023-02-18 14:28 | BI_ITS ---
MAMMOGRAPHY - UNILATERAL DIAGNOSTIC: LEFT BREAST REASON FOR EXAM: Female, 57 years old. Abnormal screening mammogram. PERTINENT HISTORY: Non-contributory. TECHNIQUE: Magnification spot views as well as 90 degree lateral view of the left breast were obtained. CAD: Full Field Digital Mammography with Computer Added Detection was performed. COMPARISON: Comparison is made with prior study February 11, 2023. FINDINGS: Breast Composition: The breasts are heterogeneously dense, which may obscure small masses. There are no dominant masses or suspicious calcifications. No other significant abnormalities are identified. BI/DIAG MAMM W/CAD, UNILAT IMPRESSION: Negative unilateral diagnostic mammogram. Targeted ultrasound correlation is recommended. ASSESSMENT CATEGORY: BIRADS Category 0: Incomplete. Need additional imaging evaluation. A letter regarding these results will be sent to the patient by the facility within 30 days. Approximately 10% of breast cancers are not detected by mammography. A normal mammogram should not delay biopsy of a clinically suspicious abnormality. Electronically Signed: Quinten Hernandez MD at 15:07 EDT ,
== END | disposition home or self-care (01) ==
PROVIDERS: PCP Internal Medicine; Referring Provider Nurse Practitioner Family; Visit Provider Nurse Practitioner Family
DX: R92.2 Inconclusive mammogram (principal)
CPT/HCPCS: 76642; 77065

== ENCOUNTER → 2023-03-25 | Outpatient (CLI) | payer OTHER, SELFPAY ==
[2023-03-25 17:05] LABS: Absolute Lymphocyte Count 2.74 X10^3/uL (0.83-4.51); Absolute Neutrophil Count 4.6 X10^3/uL (2.0-7.7); Basophil# 0.03 X10^3/uL; Basophil% 0.4 % (0-1); Eosinophil# 0.17 X10^3/uL; Eosinophils% 2.1 % (0-5); Hematocrit 46.1 % (37-47); Hemoglobin 15.2 g/dL (12.0-15.0); Lymphocyte # 2.74 X10^3/ul (0.83-4.51); Lymphocyte % 34.2 % (19-41); Mean Corpuscular Hgb 28.6 pg (27.0-32.0); Mean Corpuscular Volume 86.7 fL (81-99); Mean Platelet Vol. 9.6 fl (6.2-12.0); Monocyte# 0.44 X10^3/uL; Monocyte% 5.5 % (0-10); NRBC Flagged by Analyzer 0 % (0-5); Neutrophil # 4.62 X10^3/uL (2.7-7.7); Neutrophil % 57.6 % (47-70); Platelet Count 205 K/mm3 (150-450); RBC Distribution Width CV 12.7 % (11.6-14.6); RBC Distribution Width SD 40.2 fl (35.1-43.9); Red Blood Count 5.32 M/mm3 (4.2-5.4)
[2023-03-25 17:21] LABS: Erythrocyte Sedimentation Rate 9 mm/hr (0-30)
[2023-03-25 17:39] LABS: ALB/GLOB Ratio 0.9 RATIO (0.9-2.4); AST(SGOT) 13 U/L (15-37); Alanine Aminotransfer ALT/SGPT 25 U/L (13-56); Albumin, Serum 3.7 g/dL (3.2-5.0); Alkaline Phosphatase 90 U/L (45-117); Amylase 66 U/L (25-115); Anion Gap 1 (5-15); BUN 13 mg/dL (7-18); BUN/Creat Ratio 18.9 RATIO (10-20); CRP 7.09 mg/L (0.0-3.0); Calcium,Total 9.2 mg/dL (8.5-10.1); Chloride 108 mmol/L (98-107); Creatinine, Serum 0.69 mg/dL (0.55-1.02); EST Glomerular Filtration Rate 94 mL/min (>60); Est Glom Filt Rate - Afr Amer 114 mL/min (>60); Free T3 2.5 pg/mL (2.18-3.98); Glucose 106 mg/dL (74-106); Lipase 38 U/L (13-75); Potassium 3.9 mmol/L (3.5-5.1); Protein, Total 7.7 g/dL (6.4-8.2); Sodium Level 138 mmol/L (136-145); T4 Free Direct 0.87 ng/dL (0.76-1.46); Thyroid Stim Hormone (TSH) 1.22 uIU/mL (0.358-3.74)
[2023-04-01 06:09] LABS: Albumin 4.2 g/dL (2.9-4.4); Alpha-1-Globulins 0.2 g/dL (0.0-0.4); Alpha-2-Globulins 0.8 g/dL (0.4-1.0); Cytoplasmic Ab (C-ANCA) <1:20 titer (Neg:<1:20); Endomysial Antibody IgA Negative (Negative); IMMUNOFIXATION RESULT,S Comment: (.); Immunoglobulin A 180 mg/dL (87-352); Immunoglobulin E 53 IU/mL (6-495); Immunoglobulin G 1032 mg/dL (586-1602); Immunoglobulin M 71 mg/dL (26-217); PROEL- TOTAL PROTEIN 7.4 g/dL (6.0-8.5); Perinuclear Ab (P-ANCA) <1:20 titer (Neg:<1:20); t-Transglutaminase IgA <2 U/mL (0-3)
== END | disposition home or self-care (01) ==
LOC: LAB 16:51
PROVIDERS: PCP Internal Medicine; Referring Provider Internal Medicine Gastroenterology; Visit Provider Internal Medicine Gastroenterology
DX: K59.09 Other constipation (principal); R10.9 Unspecified abdominal pain
CPT/HCPCS: 36415; 80053; 82150; 82784; 82785; 83516; 83690; 84165; 84439; 84443; 84481; 85025; 85652; 86140; 86255; 86256; 86334

== ENCOUNTER → 2023-03-30 | Outpatient (CLI) | payer OTHER, SELFPAY ==
--- NOTE | 2023-03-30 10:55 | RAD_ITS ---
STUDY: X-RAY - ABDOMEN/PELVIS REASON FOR EXAM: Female, 57 years old. sitz marker TECHNIQUE: Single AP view of the abdomen / pelvis. COMPARISON: None. FINDINGS: Lung bases not included in the [id number]. Increased fecal debris within the colon consistent with constipation. There is no demonstrated free abdominal air. The visualized liver, spleen and kidneys are grossly normal in size and morphology. Scattered radiopaque metallic markers along the trajectory of the colon noted more so along the descending colon. Normal visualized osseous structures. RAD/Abdomen Single View IMPRESSION: Constipation as described. Electronically Signed: Maryan Hernandez MD at 16:53 EDT ,
== END | disposition home or self-care (01) ==
LOC: RAD 10:52
PROVIDERS: PCP Internal Medicine; Referring Provider Internal Medicine Gastroenterology; Visit Provider Internal Medicine Gastroenterology
DX: R10.9 Unspecified abdominal pain (principal); K59.09 Other constipation
CPT/HCPCS: 74018

== ENCOUNTER → 2023-04-01 | Outpatient (CLI) | payer OTHER, SELFPAY ==
--- NOTE | 2023-04-01 09:40 | RAD_ITS ---
STUDY: X-RAY - ABDOMEN/PELVIS REASON FOR EXAM: Female, 57 years old. Sitzmarks markers. Follow-up. TECHNIQUE: Single AP view of the abdomen / pelvis 2 images. COMPARISON: March 30, 2023. FINDINGS: Normal visualized lung bases. Normal bowel gas pattern with air seen to the rectum. Most of the Sitzmarks markers in the right side of the transverse colon and descending colon and rectum, similar to what was present on 03/30/2023. Only 20 Sitzmarks are present and there were 23 on 03/30/23. The visualized liver, spleen and kidneys are grossly normal in size and morphology. Normal soft tissue structures. Normal visualized osseous structures. RAD/Abdomen Single View IMPRESSION: Decrease in number of Sitzmarks markers with decrease in the markers. No acute finding. Electronically Signed: Kirill Dahl MD at 14:29 EDT ,
== END | disposition home or self-care (01) ==
LOC: RAD 09:23
PROVIDERS: PCP Internal Medicine; Referring Provider Internal Medicine Gastroenterology; Visit Provider Internal Medicine Gastroenterology
DX: K59.09 Other constipation (principal)
CPT/HCPCS: 74018

== ENCOUNTER → 2023-04-13 | Outpatient (CLI) | payer OTHER, SELFPAY ==
--- NOTE | 2023-04-13 10:24 | NM_ITS ---
CLINICAL: 67-year-old female with history of abdominal pain. SEMI-SOLID PHASE 99m Tc SULFUR COLLOID GASTRIC EMPTYING STUDY COMPARISON: None available FINDINGS: The patient was administered 1.1 mCi of 99m Tc sulfur colloid mixed with oatmeal and consumed per os. Image acquisitions in the anterior-posterior projections were obtained for 60 minutes. There is prompt visualization of the stomach. There is no gastroesophageal reflux identified. The T ? raw data emptying was calculated to be 41.37 minutes, (Normal: 12-56 minutes). NM/Gastric Emptying Study IMPRESSION: 1. NORMAL 99m Tc sulfur colloid semi-solid phase (oatmeal) gastric emptying imaging examination. A. There is normal and preserved semi-solid phase gastric emptying compared to normal controls. (Brody et al, J Nucl Med Tech 38: 186, 2010). Electronically Signed: Vicente Art DO at 22:47 EDT ,
== END | disposition home or self-care (01) ==
PROVIDERS: PCP Internal Medicine; Referring Provider Internal Medicine Gastroenterology; Visit Provider Internal Medicine Gastroenterology
DX: K59.09 Other constipation (principal); R10.9 Unspecified abdominal pain
CPT/HCPCS: 78264; A9541

== ENCOUNTER → 2023-04-14 | Outpatient (CLI) | payer OTHER, SELFPAY ==
--- NOTE | 2023-04-14 08:48 | RAD_ITS ---
PROCEDURE: Air contrast Upper GI with Small Bowel Follow Through DATE OF EXAMINATION: April 14, 2023.. INDICATION: Female, 57 years old. Severe constipation. FLUOROSCOPY TIME (if supplied): (1:31) minutes/seconds. 57.66 mGy. 13 images were submitted. TECHNIQUE: Radiographic and fluoroscopic images of the distal esophagus, stomach, and entire small intestine were obtained following the oral ingestion of barium. COMPARISON: None. FINDINGS: The multi operation forming machine setter film of the abdomen demonstrates a normal bowel gas pattern. There are no abnormal calcifications or organomegaly demonstrated. The visualized osseous structures are normal. The esophagus is unremarkable. No evidence of gastroesophageal reflux. The stomach and duodenum are unremarkable. A single contrast small bowel follow through exam demonstrates the small bowel to have no evidence for stricture, ulceration or mass. The transit time is normal at 30 minutes. The terminal ileum is unremarkable. RAD/Upper GI/w Small Bowel IMPRESSION: 1. Normal air contrast upper GI and small bowel follow-through exam. Electronically Signed: Quinten Hernandez MD at 15:08 EDT ,
== END | disposition home or self-care (01) ==
LOC: RAD 08:47
PROVIDERS: PCP Internal Medicine; Referring Provider Internal Medicine Gastroenterology; Visit Provider Internal Medicine Gastroenterology
DX: K59.09 Other constipation (principal); R10.9 Unspecified abdominal pain
CPT/HCPCS: 74246; 74248

== ENCOUNTER 2023-04-23 08:56 | Day surgery (SDC) | payer OTHER, SELFPAY ==
[2023-04-23] VITALS (9 sets, daily range): BP systolic 82–132; BP diastolic 49–74; PULSE 73–94; RESP 16–18; TEMP 36–36.6; O2SAT 95–99; BMI 30.7
[2023-04-23] MEDS: Lactated Ringers 1,000 ML 15 ML IV (09:24)
--- NOTE | 2023-04-23 10:15 | IMM_PTH ---
PATIENT: SAVANNA FUENTES LOC: EN U#:[id number] AGE/SX: 57/F ROOM: RE04/23/[address]: Dr. Brett Granados DO : 1965 BED: DIS: 04/23/2023 SPEC #: [id number] RECD: 04/24/23 13:42 STATUS: DANE REQ #: [id number] ANABELLA: 04/23/23 10:[address]: Brett Granados DEPT: IMMUNOHISTOCHEMISTRY RECD BY: Genny Stark ENTERED: 04/24/23 13:43 SP TYPE: IMMUNO OTHR DR: Dr. Barb Rucker, Tissues: B - Pyloric sphincter Procedures: H Pylori (initial) PHYSICIAN & INSTITUTION [place] [id number] SPECIMEN INFORMATION: Tissue Source: B - Pyloric sphincter Clinical Info: Chronic constipation, abdominal pain Specimen Number: [id number] CPT code: 11477 METHODOLOGY: Deparaffinized sections of prefer/formalin-fixed tissue or PAP/DQ stained slides are incubated with monoclonal/polyclonal antibodies/oligonucleotide probes. Localization is made via biotin free immunoperoxidase method. Appropriate controls are performed and reacted as expected. Results on target cell population are indicated in the following table: RESULTS: ANTIBODY / CLONE RESULT Block B H Pylori (polyclonal) negative These tests were developed and their performance characteristics determined by [facility]. They may not have been cleared or approved by the U.S. Food and Drug Administration. The FDA has determined that such clearance or approval is not necessary. The above immunohistochemical/dualISH markers are ordered and reviewed by the Pathologist. INTERPRETATION: B. Pyloric sphincter, biopsy: Negative for Helicobacter pylori organisms. SJ:sheri 04/27/2023
--- NOTE | 2023-04-23 10:15 | EGD_PTH ---
PATIENT: SAVANNA FUENTES LOC: EN U#:[id number] AGE/SX: 57/F ROOM: RE04/23/[address]: Dr. Brett Granados DO : 1965 BED: DIS: 04/23/2023 SPEC #: [id number] RECD: 04/23/23 10:15 STATUS: DANE TONY #: [id number] ANABELLA: 04/23/23 10:[address]: Brett Granados DEPT: SURGICAL PATHOLOGY RECD BY: Darling Simpson ENTERED: 04/24/23 08:17 SP TYPE: EGD BIOPSY VARGAS DR: Dr. Barb Rucker DO Tissues: A - Duodenum, NOS B - Esophageal mucous membrane C - COLON BIOPSY Procedures: Surgery Specimen Level IV HEADER OPERATION: Colonoscopy with polypectomy, EGD with biopsy PRE-OP DIAGNOSIS: Chronic constipation, abdominal pain TISSUE SUBMITTED: A - Duodenum biopsy, B - Pyloric sphincter biopsy, C - Distal esophagus biopsy, D - Hepatic flexure polyp MICROSCOPIC DIAGNOSIS A. Duodenum, biopsy: Fragments of duodenal mucosa with focal gastric metaplasia. B. Pyloric sphincter, biopsy: Mild gastritis. See microscopic description and comment. C. Distal esophagus, biopsy: Fragments of gastroesophageal mucosa with chronic inflammation. Intestinal metaplasia (goblet cell metaplasia) not identified. See comment. D. Hepatic flexure polyp, polypectomy: Fragments of tubular adenoma. SJ: 04/27/2023 COMMENT B. The results of immunohistochemistry for Helicobacter pylori will be reported separately ([id number]). Focal intestinal metaplasia (goblet cell metaplasia) is noted B. & C. Alcian blue/PAS stain with matched control is used in the evaluation of the specimen. MICROSCOPIC DESCRIPTION Slides are reviewed. The specimen shows fragments of gastric mucosa with chronic inflammatory cell infiltrates in the lamina propria consisting of lymphocytes and plasma cells, consistent with mild chronic gastritis. GROSS DESCRIPTION A - Received in fixative is one container labeled with the patient's name and designated duodenum biopsy. The specimen consists of multiple irregular fragments of light ybarra soft tissue that in aggregate measure 0.6 x 0.5 x 0.1 cm. The specimen is totally submitted in one cassette. B - Received in fixative is one container labeled with the patient's name and designated pyloric sphincter biopsy. The specimen consists of two irregular fragments of light ybarra soft tissue that in aggregate measure 0.8 x 0.5 x 0.1 cm. The specimen is totally submitted in one cassette. C - Received in fixative is one container labeled with the patient's name and designated distal esophagus biopsy. The specimen consists of two irregular fragments of light ybarra soft tissue that in aggregate measure 0.6 x 0.3 x 0.1 cm. The specimen is totally submitted in one cassette. D - Received in fixative is one container labeled with the patient's name and designated hepatic flexure polyp. The specimen consists of multiple irregular fragments of light ybarra soft tissue that in aggregate measure 1.0 x 0.2 x 0.1 cm. The specimen is totally submitted in one cassette. / SJ:rg 04/24/2023 TC:1 CPT: 12389 x4
--- NOTE | 2023-04-23 11:18 | HP.PCM_ITS ---
History and Physical Date of Admission: 04/23/23 SAVANNA FUENTES, is a 57 F who presents to the office today for PMH GERD, fatty liver, internal hemorrhoids and chronic constipation (Linzess 72mcg liquid BM, Colace BID, MiraLAX). [facility] ED 8.05.12 for abdominal pain for several days. GI cocktail administered with improvement. Declines labwork, imaging, cardiac workup. PCP OV noting need for screening colonoscopy. *BGI established 03.24.23 constipation with upper abdominal discomfort, bloating, some nausea has been a long-standing issue with BM once a week or less. Laxatives are ineffective. ROS Const Constitutional: No fatigue, weight change or other (As above) Eyes Eyes: No change in vision ENT ENT: No abnormal hearing, difficulty swallowing, mouth lesions, tongue swelling or throat swelling Resp Respiratory: No cough or shortness of breath Cardio Cardiology: No chest pain at rest, chest pain with exertion, shortness of breath or dyspnea on exertion Gastro GI: No difficulty swallowing Genitourinary-Female: No difficulty urinating or burning urination Musc Musculoskeletal: No joint pain, joint swelling, muscle weakness or decreased muscle mass Skin Skin: No hair loss in leg, yellowing of the eye, itchy eyes, rash, skin ulcer or skin swelling Neuro Neurology: No abnormal hearing, abnormal movements, confusion, unsteady gait/balance or memory loss Psych Psychiatric: No anxiety, No confusion and No memory loss Endo Endocrine: No fatigue or weight change Aller/Imm Allergy/Immunologic: No itchy eyes, throat swelling or tongue swelling Radu/Lymp Hematologic/Lymphatic: No easy bleeding, easy bruising or enlarged lymph nodes Exam Const General: cooperative, healthy appearing, comfortable and no acute distress Nutritional Appearance: well nourished Orientation: alert, awake and oriented x3 HENMT Head: normal to inspection Ears: hearing grossly normal bilaterally, external ears normal, TM's normal bilaterally and EAC's normal Nose: external nose normal, nares normal, septum normal and no nasal discharge Face and sinus: normal facial exam, sinuses nontender and face symmetric Mouth: oral mucosae normal, lip normal, tongue normal and oropharynx normal Throat: posterior oropharynx normal, uvula midline, abnormal tonsil bilaterally erythema; no exudates and no hypertrophy and no postnasal drainage Eyes General: appearance normal, both eyes and all related structures Neck Neck: normal visual inspection, full ROM, no meningeal signs, supple and lymphadenopathy (Bilateral anterior cervical node swelling/tender to palpation) Neck mass: No Thyroid: thyroid normal Chest Chest palpation & inspection: normal inspection of the chest Resp Effort & Inspection: normal respiratory effort, able to speak in complete sentences, symmetric chest movement and no cough Auscultation: Bilateral: Clear to Auscultation Cardio Palpation: normal PMI Rate: regular rate Rhythm: regular rhythm Heart Sounds: S1 normal, S2 normal, no gallops, no murmurs and no rubs Pulses: radial pulses present GI Inspection: normal to inspection Palpation: soft and no hepatosplenomegaly Skin General: no rashes or lesions noted Neuro General: patient alert, patient awake, patient oriented x3 and gait normal Cognition: normal cognition Speech: speech normal Gait: normal gait Motor: muscle tone normal throughout Sensory Exam: no sensory deficits noted Extrem General: normal to inspection Psych Appearance: grossly normal Mental Status: mental status grossly normal Mood: congruent mood Affect: normal affect Speech and Movement: speech and movement normal Attitude: cooperative Thought Process: normal Thought Content: normal Judgment: judgment good Quality Reporting Tobacco Screening ([facility] 138) Smoking Status: Current every day smoker Assessment and Plan Assessment and Plan (1) Chronic constipation: Status: Chronic Plan: The differential diagnosis for her constipation does include slow transit constipation versus pelvic floor dysfunction versus underlying autoimmune disease or functional constipation associated with IBS with C. She will undergo gastric emptying study along with upper GI with small bowel follow-through and sits marker test. She may also need an upper and lower endoscopy with biopsies to rule out eosinophilic disease, structural abnormality in the colon and or upper GI tract. (2) Abdominal pain: Status: Acute Qualifiers: Abdominal location: generalized Qualified Code(s): R10.84 - Generalized abdominal pain Plan: Differential diagnosis for her abdominal pain does include bloating secondary to chronic constipation. Also different diagnosis includes peptic ulcer disease, H. pylori associated disease, celiac disease, bacterial overgrowth, exocrine pancreatic insufficiency. She will undergo an upper and lower endoscopy to evaluate upper and lower GI tract. She was explained alternatives, risk, benefits including outstanding bleeding, infection, sepsis, perforation, need for emergent surgery . She have an ASA of 2. Orders: Orders Celiac Disease Profile 03/25/23 K59.09 - Other constipation, R10.9 - Unspecified abdominal pain CBC W/Diff, Automated 03/25/23 K59.09 - Other constipation, R10.9 - Unspecified abdominal pain CRP 03/25/23 K59.09 - Other constipation, R10.9 - Unspecified abdominal pain Erythrocyte Sed Rate 03/25/23 K59.09 - Other constipation, R10.9 - Unspecified abdominal pain ANCA 03/25/23 K59.09 - Other constipation, R10.9 - Unspecified abdominal pain Comprehensive Metabolic Profil 03/25/23 K59.09 - Other constipation, R10.9 - Unspecified abdominal pain Amylase 03/25/23 K59.09 - Other constipation, R10.9 - Unspecified abdominal pain Lipase 03/25/23 K59.09 - Other constipation, R10.9 - Unspecified abdominal pain LYLY + Protein Elect, Serum 03/25/23 K59.09 - Other constipation, R10.9 - Unspecified abdominal pain Immunoglobulins G/A/M/E 03/25/23 K59.09 - Other constipation, R10.9 - Unspecified abdominal pain Thyroid Stim Hormone (TSH) 03/25/23 K59.09 - Other constipation, R10.9 - U nspecified abdominal pain T4 Free Direct 03/25/23 K59.09 - Other constipation, R10.9 - Unspecified abdominal pain Free T3 03/25/23 K59.09 - Other constipation, R10.9 - Unspecified abdominal pain Gastric Emptying Study 03/25/23 K59.09 - Other constipation, R10.9 - Unspecified abdominal pain Upper GI/w Small Bowel 03/25/23 K59.09 - Other constipation, R10.9 - Unspecified abdominal pain Abdomen Single View 03/25/23 K59.09 - Other constipation, R10.9 - Unspecified abdominal pain Abdomen Single View 03/25/23 K59.09 - Other constipation I have examined the patient and the H&P has been reviewed. There are no clinical changes since date of exam.
--- NOTE | 2023-04-23 12:09 | OP.CCLET_ITS ---
04/23/2023 Barb Rucker [address] [place] [address] Re : Upper GI endoscopy procedure for Devika Page Dear Dr. Rucker This procedure was performed on April. My impressions and recommendations are as follows: Impressions : - LA Grade A reflux esophagitis with no bleeding. Biopsied. - Gastric stenosis was found at the pylorus. Dilated. - Chronic duodenitis. Biopsied. Recommendations : - Discharge patient to home. - Resume previous diet. - Continue present medications. - Await pathology results. - Use Protonix (pantoprazole) 20 mg PO BID. My findings are described in the full procedure note, which is enclosed. If I can be of further assistance, please feel free to contact me at . Sincerely, Brett Granados, 04/23/2023 12:09:05 PM This report has been signed electronically.
--- NOTE | 2023-04-23 12:09 | OP.EGD_ITS ---
Patient Name: Devika Page Procedure Date: 04/23/2023 11:15 AM Date of : 1965 Age: 57 Procedure: Upper GI endoscopy Indications: Epigastric abdominal pain, Functional Dyspepsia Providers: Brett Granados DO Medicines: Monitored Anesthesia Care Patient Profile: This is a 57 year old female. Refer to note in patient chart for documentation of history and physical. Patient has symptoms of chronic epigastric abdominal pain and chronic dyspepsia. Complications: No immediate complications. Procedure: Pre-Anesthesia Assessment: - Prior to the procedure, a History and Physical was performed, and patient medications and allergies were reviewed. The patient is competent. The risks and benefits of the procedure and the sedation options and risks were discussed with the patient. All questions were answered and informed consent was obtained. Patient identification and proposed procedure were verified by the physician in the pre-procedure area. Mental Status Examination: alert and oriented. Airway Examination: normal oropharyngeal airway and neck mobility. Respiratory Examination: clear to auscultation. CV Examination: normal. Prophylactic Antibiotics: The patient does not require prophylactic antibiotics. Prior Anticoagulants: The patient has taken no anticoagulant or antiplatelet agents. ASA Grade Assessment: II - A patient with mild systemic disease. After reviewing the risks and benefits, the patient was deemed in satisfactory condition to undergo the procedure. The anesthesia plan was to use monitored anesthesia care (MAC). Immediately prior to administration of medications, the patient was re-assessed for adequacy to receive sedatives. The heart rate, respiratory rate, oxygen saturations, blood pressure, adequacy of pulmonary ventilation, and response to care were monitored throughout the procedure. The physical status of the patient was re-assessed after the procedure. After obtaining informed consent, the endoscope was passed under direct vision. Throughout the procedure, the patient's blood pressure, pulse, and oxygen saturations were monitored continuously. The colonoscope was introduced through the mouth, and advanced to the second part of duodenum. The upper GI endoscopy was accomplished without difficulty. The patient tolerated the procedure well. Scope In: 11:28:40 AM Scope Out: 11:35:25 AM Total Procedure Duration Time 0 hours 6 minutes 45 seconds Findings: LA Grade A (one or more mucosal breaks less than 5 mm, not extending between tops of 2 mucosal folds) esophagitis with no bleeding was found 36 to 38 cm from the incisors. Biopsies were taken with a cold forceps for histology. Verification of patient identification for the specimen was done. Estimated blood loss was minimal. A benign-appearing, intrinsic severe stenosis was found at the pylorus. This was traversed. A TTS dilator was passed through the scope. Dilation with a 15 mm pyloric balloon dilator was performed. The dilation site was examined and showed moderate improvement in luminal narrowing. Patchy moderate inflammation was found in the duodenal bulb. Biopsies were taken with a cold forceps for histology. Verification of patient identification for the specimen was done. Estimated blood loss: none. Impression: - LA Grade A reflux esophagitis with no bleeding. Biopsied. - Gastric stenosis was found at the pylorus. Dilated. - Chronic duodenitis. Biopsied. Recommendation: - Discharge patient to home. - Resume previous diet. - Continue present medications. - Await pathology results. - Use Protonix (pantoprazole) 20 mg PO BID. Procedure Code(s): --- Professional --- 88234, Esophagogastroduodenoscopy, flexible, transoral; with dilation of gastric/duodenal stricture(s) (eg, balloon, bougie) 11155, 59,51, Esophagogastroduodenoscopy, flexible, transoral; with biopsy, single or multiple CPT copyright 2021 [employer]. All rights reserved. The codes documented in this report are preliminary and upon fry cook review may be revised to meet current compliance requirements. Brett Granados DO 04/23/2023 12:09:05 PM This report has been signed electronically. Number of Addenda: 0 Note Initiated On: 04/23/2023 11:15 AM
--- NOTE | 2023-04-23 12:12 | OP.CCLET_ITS ---
04/23/2023 Barb Rucker [address] [place] [address] Re : Colonoscopy procedure for Devika Page Dear Dr. Rucker This procedure was performed on April. My impressions and recommendations are as follows: Impressions : - Stricture in the recto-sigmoid colon. - One 7 mm polyp at the splenic flexure, removed with a hot snare. Resected and retrieved. Recommendations : - Repeat colonoscopy in 5 years for surveillance. - Continue present medications. My findings are described in the full procedure note, which is enclosed. If I can be of further assistance, please feel free to contact me at . Sincerely, Brett Granados, 04/23/2023 12:11:37 PM This report has been signed electronically.
--- NOTE | 2023-04-23 12:12 | OP.COLON_ITS ---
Patient Name: Devika Page Procedure Date: 04/23/2023 11:35 AM Date of : 1965 Age: 57 Procedure: Colonoscopy Indications: Screening for colorectal malignant neoplasm Providers: Brett Granados DO Medicines: Monitored Anesthesia Care Patient Profile: This is a 57 year old female. Refer to note in patient chart for documentation of history and physical. Patient has symptoms of chronic epigastric abdominal pain and chronic dyspepsia. Last Colonoscopy: none. The patient's first colonoscopy is today. Complications: No immediate complications. Procedure: Pre-Anesthesia Assessment: - Prior to the procedure, a History and Physical was performed, and patient medications and allergies were reviewed. The patient is competent. The risks and benefits of the procedure and the sedation options and risks were discussed with the patient. All questions were answered and informed consent was obtained. Patient identification and proposed procedure were verified by the physician in the pre-procedure area. Mental Status Examination: alert and oriented. Airway Examination: normal oropharyngeal airway and neck mobility. Respiratory Examination: clear to auscultation. CV Examination: normal. Prophylactic Antibiotics: The patient does not require prophylactic antibiotics. Prior Anticoagulants: The patient has taken no anticoagulant or antiplatelet agents. ASA Grade Assessment: II - A patient with mild systemic disease. After reviewing the risks and benefits, the patient was deemed in satisfactory condition to undergo the procedure. The anesthesia plan was to use monitored anesthesia care (MAC). Immediately prior to administration of medications, the patient was re-assessed for adequacy to receive sedatives. The heart rate, respiratory rate, oxygen saturations, blood pressure, adequacy of pulmonary ventilation, and response to care were monitored throughout the procedure. The physical status of the patient was re-assessed after the procedure. After I obtained informed consent, the scope was passed under direct vision. Throughout the procedure, the patient's blood pressure, pulse, and oxygen saturations were monitored continuously. The colonoscope was introduced through the anus and advanced to the cecum, identified by appendiceal orifice and ileocecal valve. The colonoscopy was performed without difficulty. The patient tolerated the procedure well. The quality of the bowel preparation was good. The terminal ileum, ileocecal valve, appendiceal orifice, and rectum were photographed. Scope In: 11:37:32 AM Scope Withdrawal Time 0 hours 10 minutes 23 seconds Scope Out: 11:51:40 AM Total Procedure Duration Time 0 hours 14 minutes 8 seconds Findings: The perianal and digital rectal examinations were normal. A benign-appearing, intrinsic moderate stenosis measuring 2 cm (in length) was found in the recto-sigmoid colon and was traversed. A 7 mm polyp was found in the splenic flexure. The polyp was sessile. The polyp was removed with a hot snare. Resection and retrieval were complete. Verification of patient identification for the specimen was done. Estimated blood loss was minimal. Impression: - Stricture in the recto-sigmoid colon. - One 7 mm polyp at the splenic flexure, removed with a hot snare. Resected and retrieved. Recommendation: - Repeat colonoscopy in 5 years for surveillance. - Continue present medications. Procedure Code(s): --- Professional --- 93075, Colonoscopy, flexible; with removal of tumor(s), polyp(s), or other lesion(s) by snare technique CPT copyright 2021 [employer]. All rights reserved. The codes documented in this report are preliminary and upon satellite dish technician review may be revised to meet current compliance requirements. Brtet Granados DO 04/23/2023 12:11:37 PM This report has been signed electronically. Number of Addenda: 0 Note Initiated On: 04/23/2023 11:35 AM
== END 2023-04-23 13:22 | disposition home or self-care (01) ==
LOC: EN 08:58 → AC 08:58
PROVIDERS: PCP Internal Medicine; Referring Provider Internal Medicine; Visit Provider Internal Medicine Gastroenterology
PROC: 0DJD8ZZ Inspection of Lower Intestinal Tract, Via Natural or Artificial Opening Endoscopic (ICD-10-PCS; CPT 45378; principal; 2023-04-23 10:10)
DX: Z12.11 Encounter for screening for malignant neoplasm of colon (principal); K56.609 Unspecified intestinal obstruction, unspecified as to partial versus complete obstruction; K29.80 Duodenitis without bleeding; F17.200 Nicotine dependence, unspecified, uncomplicated; K21.00 Gastro-esophageal reflux disease with esophagitis, without bleeding; K31.1 Adult hypertrophic pyloric stenosis; K31.A0 Gastric intestinal metaplasia, unspecified; K29.70 Gastritis, unspecified, without bleeding; K64.9 Unspecified hemorrhoids; I10 Essential (primary) hypertension; E78.00 Pure hypercholesterolemia, unspecified; Z79.899 Other long term (current) drug therapy; D12.3 Benign neoplasm of transverse colon
CPT/HCPCS: 43249; 43239; 45385; 88305; 88342; J7120; J2405

== ENCOUNTER → 2024-02-23 | Outpatient (CLI) | payer OTHER, SELFPAY ==
--- NOTE | 2024-02-23 13:02 | BI_ITS ---
MAMMOGRAPHY - BILATERAL SCREENING REASON FOR EXAM: Female, 58 years old. Routine annual screening examination. PERTINENT HISTORY: Non-contributory. Minimal left excisional breast biopsy. TECHNIQUE: Digital bilateral breast aide (3D mammographic acquisition) in the CC and MLO projections. 2-D mediolateral oblique (MLO) and craniocaudad (CC) views of both breasts were obtained. CAD: Full Field Digital Mammography with Computer Added Detection was performed. COMPARISON: Comparison is made with prior study February 11, 2023 and February 18, 2023. FINDINGS: Breast Composition: The breasts are heterogeneously dense, which may obscure small masses. There are no dominant masses or suspicious calcifications. No other significant abnormalities are identified. There has been no significant change since the prior study. BI/SCRN MAMM (CAD)W/AIDE BILAT IMPRESSION: Stable bilateral screening mammogram. Yearly follow-up mammogram recommended. (A) ASSESSMENT CATEGORY: BIRADS Category 1: Negative. A letter regarding these results will be sent to the patient by the facility within 30 days. Approximately 10% of breast cancers are not detected by mammography. A normal mammogram should not delay biopsy of a clinically suspicious abnormality. [id number] Electronically Signed: Quinten Hernandez MD at 14:12 EDT ,
--- NOTE | 2024-02-23 13:04 | BD_ITS ---
STUDY: DUAL ENERGY X-RAY ABSORPTIOMETRY / DXA REASON FOR EXAM: Female, 58 years old. [id number] -- Postmenopausal status TECHNIQUE: Bone Mineral Density (BMD) measurements of lumbar spine and bilateral hips were obtained. COMPARISON: Comparison is made with prior study February 06, 2022. FINDINGS: Lumbar Spine (L1-L4): g/cm2 (0.989) / T-score (-0.5) / Z-score (0.7) Findings are suggestive of normal bone density with a low fracture risk. Left Femur Total: g/cm2 (1.058) / T-score (0.9) / Z-score (1.8) Left Femoral Neck: g/cm2 (0.846) / T-score (0.0) / Z-score (1.1) Right Femur Total: g/cm2 (1.061) / T-score (1.0) / Z-score (1.8) Right Femoral Neck: g/cm2 (0.864) / T-score (0.1) / Z-score (1.3) The T-Scores on the most recent prior examination were: Lumbar Spine (L1-L4): There has been worsening of bone density since the previous examination. Left Femur Total: which represents a worsening of 1.5. Right Femur Total: which represents a worsening of 3.4%. BD/Dexa Bone Density Study IMPRESSION: The patient is considered normal as outlined below according to World Memo Organization (WHO) criteria with a moderate fracture risk. There has been worsening of bone density since the previous examination. Reference Information: The T-score is the number of standard deviations above or below the standard which is normal for young adults at their peak bone mineral density. The World Health Organization (WHO) interprets the T-scores as follows: Above -1 Normal bone density Between -1 and -2.5 Osteopenia Equal to / or below -2.5 Osteoporosis As a practical clinical guideline, osteopenia may be graded as follows: Mild -1 through -1.5 Moderate -1.6 through -2.0 Severe -2.1 through -2.4 The Z-score is the number of standard deviations above or below age-matched controls. A Z-score of less than -1.5 would be considered abnormal. References: 1. NIH Osteoporosis and Related Bone Diseases www osteo.org 2. International Society for Clinical Densitometry www iscd.org 3. National Osteoporosis Foundation www nof.org Electronically Signed: Quinten Hernandez MD at 15:05 EDT ,
== END | disposition home or self-care (01) ==
LOC: OPBD 13:00
PROVIDERS: PCP Nurse Practitioner Family; Referring Provider Nurse Practitioner Family; Visit Provider Nurse Practitioner Family
DX: Z12.31 Encounter for screening mammogram for malignant neoplasm of breast (principal); Z78.0 Asymptomatic menopausal state
CPT/HCPCS: 77063; 77067; 77080